=== PATIENT | male | born 1995 | race Caucasian/White ===

== ENCOUNTER 2016-09-25 15:18 | Emergency (ER) | payer SELFPAY ==
[2016-09-25 15:27] VITALS: BP 114/68
--- NOTE | 2016-09-25 15:50 | UC ---
UC General HPI - History of Current Complaint Chief Complaint: UCUpperExtremity Stated Complaint: PECTORAL INJURY Time Seen by Provider: 09/25/16 15:36 Hx Obtained From: Patient Onset/Duration: Gradual Onset - has had escalating R sided pectoral pain. works at [employer] nad lifts heavy food repeatidly. no known certain injury Timing: Constant Onset Severity: Mild Current Severity: Moderate Associated Signs & Symptoms: Negative: Chest Pain, Dizziness, Headache, Hemoptysis, SOB, Wheezing - Allergy/Home Medications Allergies/Adverse Reactions: Allergies Allergy/AdvReac Type Severity Reaction Status Date / Time No Known Allergies Allergy Verified 05/24/14 01:04 PMH/Surg Hx/FS Hx/Imm Hx Previously Healthy: Yes - Surgical History Surgical History: Yes Surgery Procedure, Year, and Place: tubes - Family History Known Family History: Positive: None - Social History Occupation: Employed Part-time - [employer] Lives: With Family Alcohol Use: Occasionally Substance Use Type: Marijuana Substance Use Comment - Amount & Last Used: 2-3 times a week Smoking Status (MU): Light Every Day Tobacco Smoker Type: Cigarettes Cessation Counseling: Patient Advised to Stop Review of Systems Constitutional: Negative Cardiovascular: Negative Gastrointestinal: Negative Musculoskeletal: Other: - pain R pectoral area, worse with R arm movement or very deep breath Neurological: Negative Psychological: Negative All Other Systems Reviewed And Are Negative: Yes Physical Exam Triage Information Reviewed: Yes Appearance: Well-Appearing, No Pain Distress, Well-Nourished Vital Signs: Initial Vital Signs Temp 99.2 F 09/25/16 15:21 Pulse 62 09/25/16 15:21 Resp 18 09/25/16 15:21 BP 114/68 09/25/16 15:21 Pulse Ox 97 09/25/16 15:21 Vital Signs Reviewed: Yes Respiratory Exam: Normal Respiratory: Positive: Lungs clear, Normal breath sounds Cardiovascular Exam: Normal Cardiovascular: Positive: RRR, No Murmur Musculoskeletal: Positive: Other: - palpable pain R anterior chest, intercostal area rib 4-5, small amt crepitus when arm abducted Course/Dx - Differential Dx - Multi-Symptom Provider Diagnoses: R pectoral strain. costrochondritis Discharge - Discharge Plan Condition: Stable Disposition: HOME Patient Education Materials: Muscle Strain (ED) Additional Instructions: apply heat to area of pain use over the counter ibuprofen 600-800mg every 6 hours with food for 3-5 days return if no improvement 5 days
== END 2016-09-25 16:04 | disposition home or self-care (01) ==
LOC: UCEAST 15:18
DX: Z72.0 Tobacco use (principal); S29.011A Strain of muscle and tendon of front wall of thorax, initial encounter; X50.3XXA Overexertion from repetitive movements, initial encounter; Y93.G1 Activity, food preparation and clean up; Y92.511 Restaurant or cafe as the place of occurrence of the external cause; Y99.0 Civilian activity done for income or pay; M94.0 Chondrocostal junction syndrome [Tietze]
CPT/HCPCS: 99211; G0463

== ENCOUNTER 2017-09-18 16:03 | Inpatient (IN) | payer OTHER ==
[2017-09-18 18:44] LABS: ABS Basophils 0 10^3/ul (0-0.2); ABS Eosinophils 0 10^3/ul (0-0.6); ABS Monocytes 0.8 10^3/ul (0-0.8); ABS Neutrophils 6.1 10^3/ul (1.5-7.7); ABS Nucleated RBC 0 10^3/ul; Eosinophil % 0.5 % (0-6); Hematocrit 44 % (42-52); Hemoglobin 14.9 g/dl (14.0-18.0); Lymphocyte % 12.2 % (25-47); Mean Corpuscular HGB Conc 34 g/dl (31-36); Mean Corpuscular Hemoglobin 30 pg (27-31); Mean Corpuscular Volume 88 fL (80-94); Mean Platelet Volume 8.8 um3 (7.4-10.4); Nucleated Red Blood Cells % 0; Platelet Count 237 10^3/ul (150-450); Red Blood Count 4.95 10^6/ul (4.0-5.4); Red Cell Distribution Width 13 % (10.5-15); White Blood Count 7.9 10^3/ul (3.5-10.8)
[2017-09-18 19:00] LABS: EGFR Non-African American 97.7 (>60)
[2017-09-18 19:43] LABS: Urine Appearance Clear; Urine Blood Negative (Negative); Urine Color Yellow; Urine Ketones Negative (Negative); Urine Protein Negative (Negative); Urine Specific Gravity 1.008 (1.010-1.030); Urine Urobilinogen Negative (Negative)
[2017-09-18] MEDS ORDERED: Nicotine Inhaler* 10 MG AMP INH ONE (21:47)
[2017-09-18] MEDS ORDERED: Mouth Piece, Nicotine* 1 EACH CARTRIDGE ONE (22:16)
[2017-09-18] MEDS: Mouth Piece, Nicotine* 1 EACH CARTRIDGE INH PRN (22:20)
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
[2017-09-19] MEDS ORDERED: Mouth Piece, Nicotine* 1 EACH CARTRIDGE INH ONE (01:00)
[2017-09-19] MEDS ORDERED: ALPRAZolam TAB* 0.5 MG PO ONE (01:09)
[2017-09-19] MEDS ORDERED: Nicotine Inhaler* 10 MG AMP ONE ×2 (01:27→10:34)
[2017-09-19] MEDS: Nicotine Inhaler* 10 MG AMP INH PRN ×4 (01:39→19:58)
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
[2017-09-19] MEDS ORDERED: Al Hydrox/Mg Hydrox/Simet LIQ* 30 ML UDC PO PRN (12:06)
[2017-09-19] MEDS ORDERED: Acetaminophen TAB* 325 MG PO PRN (12:06)
[2017-09-19] MEDS ORDERED: Nicotine Inhaler* 10 MG AMP INH PRN (12:06)
[2017-09-19] MEDS ORDERED: Haloperidol TAB* 5 MG PO PRN (12:07)
[2017-09-19] MEDS ORDERED: Mouth Piece, Nicotine* 1 EACH CARTRIDGE ONE (16:24)
[2017-09-19] MEDS: Mouth Piece, Nicotine* 1 EACH CARTRIDGE INH PRN (16:28)
[2017-09-19] MEDS: LORazepam TAB(*) 1 MG PO PRN (20:37)
[2017-09-20] MEDS: Nicotine Inhaler* 10 MG AMP INH PRN ×7 (06:30→21:02)
[2017-09-20] MEDS: Nicotine GUM* 2 MG PO PRN ×4 (08:38→21:02)
--- NOTE | 2017-09-20 11:29 | PN ---
MHU: Group Therapy Note - Service Type Service Type: [id number] Group Psychotherapy - Cognitive Behavioral Group Therapy ( CBT):Patient was attentive and participatory in CBT programming this morning, and remained in good behavioral control. Patient expressed positive insights regarding relevant treatment interventions and goals.
[2017-09-20] MEDS: Lithium Carbonate TAB* 300 MG PO SCH (16:54)
[2017-09-20] MEDS: LORazepam TAB(*) 1 MG PO PRN (21:02)
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
[2017-09-21] MEDS: Lithium Carbonate TAB* 300 MG PO SCH (09:22)
[2017-09-21] MEDS: Nicotine Inhaler* 10 MG AMP INH PRN ×5 (09:23→21:07)
[2017-09-21] MEDS: Nicotine GUM* 2 MG PO PRN ×3 (09:23→19:05)
--- NOTE | 2017-09-21 11:36 | PN ---
Subjective - Subjective Date of Service: 09/21/17 Service Type: 11314 Hosp care 15 min low complexity Subjective: Cam is doing well. Remains hypomanic and hyperkinetic as well as overtalkative. He is tolerating the lithium well thus far and has no complaints. He denies SI or HI and is looking forward to a meeting with his parents and providers tomorrow at 11:00. He is participating well in groups, socializing with peers and agreeable with outpatient follow up referrals being made. Objective - Appearance Appearance: Well Developed/Nourished Dysmorphic Features: No Hygiene: Normal Grooming: Well Kept - Behavior Psychomotor Activities: Abnormal-Increased Exhibits Abnormal Movement: No - Attitude and Relatedness Attitude and Relatedness: Cooperative Eye Contact: Good - Speech Quality: Unpressured Latencies: Short Quantity: Copious - Mood Patient's Decription of Mood: "Great" - Affect Observed Affect: Expansive Affect Consistent with: Euphoria - Thought Process Patient's Thought Process: Coherent, Tangential Thought Content: No Passive Wish, No Suicidal Planning, No Homicidal Ideation, No Paranoid Ideation - Sensorium Experiencing Hallucinations: No, Sensorium is Clear Type of Hallucinations: Visual: No, Auditory: No, Command: No - Level of Consciousness Level of Consciousness: Alert Orientation: Yes Intact, Yes Orientated to Time, Yes Orientated to Place, Yes Orientated to Person - Impulse Control Impulse Control: Tenuous - Insight and Judgement Insight and Judgement: Fair - Group Participation Particating in Group Activities: Yes - Medication Management Medication Management Adherence: Yes Assessment - Assessment Merits Inpatient Hospitalization: For Immediate Safety, For Stabilization Inpatient DSM-V Dx: F31.13 Clinical Impression: 22 y.o. single, bisexual white male, recent college drop-out with a history of depressive episodes and recreational polysubstance abuse arrives via family with symptoms of eli and suicidal ideations. Plan - Plan Treatment Plan: Name: CAM SARAVIA Birthdate: 1995 [id number] We have started a trial of lithium 300mg PO qday, which the patient is tolerating well. Family meeting tomorrow (09/22) with parents. Target discharge for Tuesday, September 23. Continued Medication Management: Start Medication Medications: Current Medications Acetaminophen (Tylenol Tab*) 650 mg PO Q4H PRN PRN Reason: for pain; or Temp >101 F Al Hydrox/Mg Hydrox/Simethicone (Maalox Plus*) 30 ml PO Q4H PRN PRN Reason: INDIGESTION Haloperidol (Haldol Tab*) 5 mg PO Q6H PRN PRN Reason: AGITATION [place] Carbonate ([place]co Carbonate Tab*) 300 mg PO DAILY DOROTHY Last Admin: 09/21/17 09:22 Dose: 300 mg Lorazepam (Ativan Tab(*)) 1 mg PO Q6H PRN PRN Reason: ANXIETY Last Admin: 09/20/17 21:02 Dose: 1 mg Nicotine (Nicotine Inhaler*) 10 mg INH Q2H PRN PRN Reason: CRAVING Last Admin: 09/21/17 09:23 Dose: 10 mg Nicotine (Nicotine Inhaler*) 10 mg INH Q2H PRN PRN Reason: CRAVING Nicotine Polacrilex (Nicotine Gum*) 2 mg PO Q2H PRN PRN Reason: CRAVING Last Admin: 09/21/17 09:23 Dose: 2 mg - Discharge Plan Discharge Plan: Inpatient Hospitalization
[2017-09-21] MEDS: LORazepam TAB(*) 1 MG PO PRN (20:54)
[2017-09-22] MEDS: Nicotine GUM* 2 MG PO PRN ×4 (07:35→20:12)
[2017-09-22] MEDS: Nicotine Inhaler* 10 MG AMP INH PRN ×5 (07:36→20:12)
[2017-09-22] MEDS: Lithium Carbonate TAB* 300 MG PO SCH (10:14)
--- NOTE | 2017-09-22 11:28 | PN ---
MHU: Group Therapy Note - Service Type Service Type: 36520 Group Psychotherapy - Cognitive Behavioral Group Therapy ( CBT):Patient was attentive and participatory in CBT programming this morning, and remained in good behavioral control. Patient expressed positive insights regarding relevant treatment interventions and goals.
--- NOTE | 2017-09-22 13:23 | PN ---
Subjective - Subjective Date of Service: 09/22/17 Service Type: 38419 Family Medical Psyc Subjective: Cam is seen for therapeutic family meeting with his parents, Mabel and Dave Saravia, unit SW Stacey Parmar and medical student Prudence. Cam remains overtalkative and demonstrates a tendency to blurt out answers to questions asked of his parents, however, he is respectful and redirectable. His folks perceive that he is rapidly coming back to his baseline. Psychoeducation is provided, specifically around the subjects of bipolar disorder and lithium therapy. The patient continues to tolerate this well. He remains invested in recreational use of cannabis and cannot be talked into opting for complete abstinence or substance abuse treatment. He does agree to discontinue all other forms of recreational substance misuse. He is similarly agreeable with outpatient mental health follow up in the form of both a counselor and medication prescriber. Both the patient and his parents are given the opportunity to answer questions and they express comfort with the discharge plan for tomorrow, September 23. Cam denies thoughts of SI or self-harm. Objective - Appearance Appearance: Well Developed/Nourished, Healthy Appearing Dysmorphic Features: No Hygiene: Normal Grooming: Well Kept - Behavior Psychomotor Activities: Normal Exhibits Abnormal Movement: No - Attitude and Relatedness Attitude and Relatedness: Cooperative Eye Contact: Good - Speech Quality: Unpressured Latencies: Short Quantity: Copious - Mood Patient's Decription of Mood: "Great" - Affect Observed Affect: Good Affect Consistent with: Euthymia - Thought Process Patient's Thought Process: Coherent Thought Content: No Passive Wish, No Suicidal Planning, No Homicidal Ideation, No Paranoid Ideation - Sensorium Experiencing Hallucinations: No, Sensorium is Clear Type of Hallucinations: Visual: No, Auditory: No, Command: No - Level of Consciousness Level of Consciousness: Alert Orientation: Yes Intact, Yes Orientated to Time, Yes Orientated to Place, Yes Orientated to Person - Impulse Control Impulse Control: Tenuous - Insight and Judgement Insight and Judgement: Fair - Group Participation Particating in Group Activities: Yes - Medication Management Medication Management Adherence: Yes Assessment - Assessment Merits Inpatient Hospitalization: Consolidate Improvements, Pending Safe DC Plan Inpatient DSM-V Dx: F31.13 Clinical Impression: 22 y.o. single, bisexual white male, recent college drop-out with a history of depressive episodes and recreational polysubstance abuse arrives via family with symptoms of eli and suicidal ideations. Plan - Plan Treatment Plan: Name: CAM SARAVIA Birthdate: 1995 [id number] The patient is improving on a trial of lithium 300mg PO qday, and tolerating this well. Family agreeable with discharge plan. Target discharge for tomorrow , Tuesday, September 23. Continued Medication Management: Start Medication Medications: Current Medications Acetaminophen (Tylenol Tab*) 650 mg PO Q4H PRN PRN Reason: for pain; or Temp >101 F Al Hydrox/Mg Hydrox/Simethicone (Maalox Plus*) 30 ml PO Q4H PRN PRN Reason: INDIGESTION Haloperidol (Haldol Tab*) 5 mg PO Q6H PRN PRN Reason: AGITATION [place] Carbonate ([place] Carbonate Tab*) 300 mg PO DAILY DOROTHY Last Admin: 09/22/17 10:14 Dose: 300 mg Lorazepam (Ativan Tab(*)) 1 mg PO Q6H PRN PRN Reason: ANXIETY Last Admin: 09/21/17 20:54 Dose: 1 mg Nicotine (Nicotine Inhaler*) 10 mg INH Q2H PRN PRN Reason: CRAVING Last Admin: 09/22/17 10:16 Dose: 10 mg Nicotine (Nicotine Inhaler*) 10 mg INH Q2H PRN PRN Reason: CRAVING Nicotine Polacrilex (Nicotine Gum*) 2 mg PO Q2H PRN PRN Reason: CRAVING Last Admin: 09/22/17 07:35 Dose: 2 mg - Discharge Plan Discharge Plan: Outpatient Follow Up Outpatient Program: Private Clinician(s)
[2017-09-22] MEDS: LORazepam TAB(*) 1 MG PO PRN (20:12)
[2017-09-23 07:37] VITALS: BP 122/76
[2017-09-23] MEDS: Nicotine Inhaler* 10 MG AMP INH PRN (08:30)
[2017-09-23] MEDS: Lithium Carbonate TAB* 300 MG PO SCH (08:31)
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
== END 2017-09-23 12:59 | disposition home or self-care (01) | DRG 753 ==
LOC: ED 16:03 → BSU 09-19 12:06
PROVIDERS: ADMIT Psychiatry & Neurology Psychiatry; ATTEND Psychiatry & Neurology Psychiatry
PROC: GZHZZZZ Group Psychotherapy (ICD-10-PCS; principal; 2017-09-20)
DX: F31.13 Bipolar disorder, current episode manic without psychotic features, severe (principal); R45.851 Suicidal ideations; F12.10 Cannabis abuse, uncomplicated; F16.10 Hallucinogen abuse, uncomplicated; F13.10 Sedative, hypnotic or anxiolytic abuse, uncomplicated; F17.210 Nicotine dependence, cigarettes, uncomplicated; Z72.89 Other problems related to lifestyle; Z81.8 Family history of other mental and behavioral disorders; Z91.410 Personal history of adult physical and sexual abuse
CPT/HCPCS: 36415; 80053; 80061; 80074; 80307; 80320; 80329; 81003; 83036; 84443; 85025; 86592; 86703; 87491; 87591; 90847; 90853; 99222; 99231; 99238; 99284; A9270-GY; G0480

== ENCOUNTER 2018-04-07 07:15 | Emergency (ER) | payer OTHER ==
[2018-04-07] MEDS ORDERED: NS 0.9% 1000 ML* 1,000 ML IV ONE (07:48)
[2018-04-07] MEDS ORDERED: Ondansetron INJ* 2 MG/ML VIAL IV ONE (07:48)
[2018-04-07] MEDS ORDERED: Pantoprazole IV* 40 MG IV ONE (07:48)
--- NOTE | 2018-04-07 07:52 | ED ---
Abdominal Pain/Male - HPI Summary HPI Summary: The patient is a 22 y/o M presenting to [facility] accompanied by mother with a chief complaint of severe diffuse abd pain starting four days ago, which subsided that night, and then returned this morning around 00:00. The pain is located throughout the abd, but is primarily located in the RUQ. He thought that the pain initially was due to a meal he had, but he is unsure if that was the cause since it returned. The burning pain is rated 10/10 in severity. 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 Nausea and vomiting started last night with the onset of pain, and food seems to worsen the pain. He denies changes in urination and diarrhea. He also reports EtOH intake four days ago and last night prior to pain. He takes lithium for bipolar disorder. He has hx of tympanostomy tubes; his mother also reports that the pt had repeated reflux as child, and stomach surgery was going to be performed, but he grew out of the issue so surgery was never done. - History of Current Complaint Chief Complaint: Anya Stated Complaint: ABD PAIN Time Seen by Provider: 04/07/18 07:25 Hx Obtained From: Patient Onset/Duration: Sudden Onset, Lasting Days - started four days ago, subsided, returned last night at 00:00, Still Present Timing: Constant - since onset last night, Lasting Days - started four days ago , subsided, returned last night at 00:00 Severity Initially: Moderate Severity Currently: Severe Pain Intensity: 10 Pain Scale Used: 0-10 Numeric Location: Diffuse, Discrete At: RUQ Radiates: No Character: Burning Aggravating Factor(s): Food Alleviating Factor(s): Vomiting Associated Signs And Symptoms: Positive: Nausea, Vomiting. Negative: Urinary Symptoms, Diarrhea - Allergies/Home Medications Allergies/Adverse Reactions: Allergies Allergy/AdvReac Type Severity Reaction Status Date / Time No Known Allergies Allergy Verified 04/07/18 07:20 PMH/Surg Hx/FS Hx/Imm Hx Endocrine/Hematology History: Denies: Hx Diabetes Sensory History: Reports: Hx Contacts or Glasses - glasses Denies: Hx Legally Blind, Hx Deafness, Hx Hearing Aid Opthamlomology History: Reports: Hx Contacts or Glasses - glasses Denies: Hx Legally Blind EENT History: Reports: Other Psychiatric History: Reports: Hx Anxiety, Hx Bipolar Disorder, Hx Substance Abuse Denies: Hx Eating Disorder - Surgical History Surgery Procedure, Year, and Place: tympanostomy tubes Infectious Disease History: No Infectious Disease History: Denies: Traveled Outside the [place] in Last 30 Days - Family History Known Family History: Positive: Other - Paternal grandfather alcoholism, Maternal grandfather Heroin abuse Negative: Cardiac Disease, Hypertension - Social History Alcohol Use: Weekly Substance Use Type: Reports: Marijuana, Other Substance Use Comment - Amount & Last Used: daily Smoking Status (MU): Light Every Day Tobacco Smoker Type: Cigarettes, eCigarettes Have You Smoked in the Last Year: Yes Review of Systems Positive: Abdominal Pain - diffuse but worst in the RUQ, Vomiting, Nausea. Negative: Diarrhea Positive: other - NEGATIVE: changes in urination All Other Systems Reviewed And Are Negative: Yes Physical Exam - Summary Physical Exam Summary: Appearance: The patient is well-nourished in no acute distress and in no acute pain. Skin: The skin is warm and dry and skin color reflects adequate perfusion. HEENT: The head is normocephalic and atraumatic. The pupils are equal and reactive. The conjunctivae are clear and without drainage. Nares are patent and without drainage. Mouth reveals moist mucous membranes and the throat is without erythema and exudate. The external ears are intact. The ear canals are patent and without drainage. The tympanic membranes are intact. Neck: The neck is supple with full range of motion and non-tender. There are no carotid bruits. There is no neck vein distension. Respiratory: Chest is non-tender. Lungs are clear to auscultation and breath sounds are symmetrical and equal. Cardiovascular: Heart is regular rate and rhythm. There is no murmur or rub auscultated. There is no peripheral edema and pulses are symmetrical and equal. Abdomen: The abdomen is soft and tender diffusely more in the right upper quadrant. There are normal bowel sounds heard in all four quadrants and there is no organomegaly palpated. Musculoskeletal: There is no back tenderness noted. Extremities are non-tender with full range of motion. There is good capillary refill. There is no peripheral edema or calf tenderness elicited. Neurological: Patient is alert and oriented to person, place and time. The patient has symmetrical motor strength in all four extremities. Cranial nerves are grossly intact. Deep tendon reflexes are symmetrical and equal in all four extremities. Psychiatric: The patient has an appropriate affect and does not exhibit any anxiety or depression. Triage Information Reviewed: Yes Vital Signs On Initial Exam: Initial Vitals Temp Pulse Resp BP Pulse Ox 98.1 F 56 20 126/98 98 04/07/18 07:18 04/07/18 07:18 04/07/18 07:18 04/07/18 07:18 04/07/18 07:18 Vital Signs Reviewed: Yes Diagnostics - Vital Signs Vital Signs Temp Pulse Resp BP Pulse Ox 04/07/18 07:18 98.1 F 56 20 126/98 98 - Laboratory Result Diagrams: 04/07/18 07:53 04/07/18 07:53 Lab Statement: Any lab studies that have been ordered have been reviewed, and results considered in the medical decision making process. - Ultrasound No standard instances Ultrasound Interpretation Completed By: Radiologist Summary of Ultrasound Findings: Gallbladder US: No acute sonographic pathology of the visualized portion of the abdomen. ED physician has reviewed this report. Re-Evaluation - Re-Evaluation First Eval Re-Evaluation Time: 10:30 Change: Improved Comment: I spoke with the patient about US results and discharge home. Abdominal Pain Fem Course/Dx - Course Course Of Treatment: Mr. Navarro presented with a complaint of epigastric pain that started about 4 AM and is accompanied by significant vomiting and no diarrhea. He was tender in the epigastrium and especially in the right upper quadrant. He was nontoxic in appearance and his vital signs are stable. Labs were unremarkable as was a gallbladder ultrasound and his symptoms improved with IV Protonix and Zofran with normal saline. I recommended that he follow- up with his PCP or return if his symptoms returned. - Diagnoses Provider Diagnoses: Epigastric pain Discharge - Sign-Out/Discharge Documenting (check all that apply): Patient Departure - Patient will be discharged home. - Discharge Plan Condition: Stable Disposition: HOME Patient Education Materials: Epigastric Pain (ED) Referrals: Susy Mendez MD [Primary Care Provider] - 3 Days Additional Instructions: Follow up with your primary care provider in 2-3 days. Return to the emergency department for any new or worsening symptoms. - Billing Disposition and Condition Condition: STABLE Disposition: Home - Attestation Statements Document Initiated by Scribe: Yes Documenting Scribe: Isabel Muñoz Provider For Whom Scribe is Documenting (Include Credential): Dr. Carlos Macario MD Scribe Attestation: I, Isabel Muñoz, scribed for Dr. Carlos Macario MD on 04/07/18 at 1813. Scribe Documentation Reviewed: Yes Provider Attestation: The documentation as recorded by the scribe, Isabel Muñoz accurately reflects the service I personally performed and the decisions made by me, Dr. Carlos Macario MD Status of Scribe Document: Viewed
[2018-04-07 08:12] LABS: ABS Basophils 0.1 10^3/ul (0-0.2); ABS Eosinophils 0 10^3/ul (0-0.6); ABS Lymphocytes 0.8 10^3/ul (1.0-4.8); ABS Monocytes 1.1 10^3/ul (0-0.8); ABS Neutrophils 10.8 10^3/ul (1.5-7.7); ABS Nucleated RBC 0 10^3/ul; Eosinophil % 0 %; Hematocrit 48 % (42-52); Hemoglobin 16.3 g/dl (14.0-18.0); Lymphocyte % 6.2 %; Mean Corpuscular HGB Conc 34 g/dl (31-36); Mean Corpuscular Hemoglobin 29 pg (27-31); Mean Corpuscular Volume 86 fL (80-94); Nucleated Red Blood Cells % 0; Platelet Count 220 10^3/ul (150-450); Red Blood Count 5.59 10^6/ul (4.00-5.40); Red Cell Distribution Width 14 % (10.5-15); White Blood Count 12.8 10^3/ul (3.5-10.8)
[2018-04-07 08:26] LABS: ALT 12 U/L (7-52); AST 22 U/L (13-39); Albumin 4.8 g/dL (3.2-5.2); Albumin/Globulin Ratio 1.7 (1-3); Alkaline Phosphatase 92 U/L (34-104); Anion Gap 14 mmol/L (2-11); Blood Urea Nitrogen 9 mg/dL (6-24); CO2 Carbon Dioxide 23 mmol/L (22-32); Calcium 9.7 mg/dL (8.6-10.3); Chloride 100 mmol/L (101-111); EGFR Non-African American 118.6 (>60); Globulin 2.8 g/dL (2-4); Glucose 129 mg/dL (70-100); Sodium 137 mmol/L (135-145); Total Protein 7.6 g/dL (6.4-8.9)
[2018-04-07 09:30] LABS: Lithium < 0.10 mmol/L (0.6-1.2)
[2018-04-07 09:58] LABS: Urine Appearance Clear; Urine Bacteria Absent (Absent); Urine Bilirubin Negative (Negative); Urine Blood 1+ (Negative); Urine Color Yellow; Urine Glucose Negative (Negative); Urine Ketones 1+ (Negative); Urine Nitrite Negative (Negative); Urine Protein 2+(100 mg/dL) (Negative); Urine Red Blood Cell 2+(6-10/hpf) (Absent); Urine Specific Gravity 1.025 (1.010-1.030); Urine Urobilinogen Negative (Negative); Urine White Blood Cell Trace(0-5/hpf) (Absent)
[2018-04-07 10:42] VITALS: BP 109/55
== END 2018-04-07 10:47 | disposition home or self-care (01) ==
LOC: ED 07:15
DX: R10.13 Epigastric pain (principal); R11.2 Nausea with vomiting, unspecified; F17.210 Nicotine dependence, cigarettes, uncomplicated
CPT/HCPCS: 36415; 76705; 80053; 80178; 81003; 81015; 83605; 83690; 85025; 86140; 87086; 96374; 96375; 99283; J2405

== ENCOUNTER 2018-11-01 00:45 | Emergency (ER) | payer OTHER ==
[2018-11-01] MEDS ORDERED: Metoclopramide IV* 5 MG/ML 2 ML VIAL IV SLOW PU ONE (01:02)
[2018-11-01] MEDS ORDERED: NS 0.9% 1000 ML** 1,000 ML IV ONE (01:02)
[2018-11-01 01:14] LABS: ABS Basophils 0.1 10^3/ul (0-0.2); ABS Lymphocytes 0.8 10^3/ul (1.0-4.8); ABS Monocytes 1.4 10^3/ul (0-0.8); ABS Neutrophils 14.7 10^3/ul (1.5-7.7); Eosinophil % 0.2 %; Hematocrit 45 % (42-52); Hemoglobin 15.6 g/dL (14.0-18.0); Mean Corpuscular HGB Conc 35 g/dL (31-36); Mean Corpuscular Hemoglobin 30 pg (27-31); Mean Corpuscular Volume 85 fL (80-94); Mean Platelet Volume 8.4 fL (7.4-10.4); Platelet Count 255 10^3/uL (150-450); Red Cell Distribution Width 13 % (10-15); White Blood Count 17.1 10^3/uL (3.5-10.8)
[2018-11-01] MEDS ORDERED: Ketorolac INJ* 30 MG/ML 1 ML VIAL IV PUSH ONE (01:25)
[2018-11-01 01:36] LABS: Albumin 3.8 g/dL (3.2-5.2); Albumin/Globulin Ratio 1.1 (1-3); BUN/Creatinine Ratio 11.1 (8-20); C Reactive Protein 109.82 mg/L (<8.01); Calcium 9.2 mg/dL (8.6-10.3); EGFR African American 144.2 (>60); EGFR Non-African American 119.2 (>60); Globulin 3.4 g/dL (2-4); Magnesium 2.1 mg/dL (1.9-2.7); Potassium 3.4 mmol/L (3.5-5.0); Total Bilirubin 0.5 mg/dL (0.2-1.0); Total Protein 7.2 g/dL (6.4-8.9)
[2018-11-01 01:56] LABS: Lithium 0.4 mmol/L (0.6-1.2)
[2018-11-01] MEDS ORDERED: Iohexol 300* (CONTRAST) 10 ML SDV IV ONE (03:26)
--- NOTE | 2018-11-01 04:22 | ED ---
GI/ HPI - HPI Summary HPI Summary: The pt is a 23 yr old male presenting to [facility] c/o abd pain, nausea, vomiting, and constipation beginning 2 days ago. He states that he had a bowel movement today and that it was the first one in two days. He reports vomiting 3-4 times today and rates his pain severity an 8/10. He was diagnosed with a UTI and prescribed bactrim that he is currently taking. The pt also takes lithium at home. He denies any fever, dysuria, or Hx of GI surgical history. - History of Current Complaint Chief Complaint: EDNauseaVomitDiarrh Time Seen by Provider: 11/01/18 00:52 Stated Complaint: STOMACH PAIN PER PT Hx Obtained From: Patient Onset/Duration: Started Days Ago, Still Present Timing: Constant Severity: Severe Current Severity: Severe Pain Intensity: 8 Associated Signs and Symptoms: Positive: Nausea, Vomiting, Constipation, Abdominal Pain - Additional Pertinent History Primary Care Physician: ROWAN - Allergy/Home Medications Allergies/Adverse Reactions: Allergies Allergy/AdvReac Type Severity Reaction Status Date / Time No Known Allergies Allergy Verified 11/01/18 00:49 PMH/Surg Hx/FS Hx/Imm Hx Endocrine/Hematology History: Denies: Hx Diabetes Sensory History: Reports: Hx Contacts or Glasses - glasses Denies: Hx Legally Blind, Hx Deafness, Hx Hearing Aid Opthamlomology History: Reports: Hx Contacts or Glasses - glasses Denies: Hx Legally Blind Psychiatric History: Reports: Hx Anxiety, Hx Bipolar Disorder, Hx Substance Abuse Denies: Hx Eating Disorder - Surgical History Surgery Procedure, Year, and Place: tympanostomy tubes Infectious Disease History: No Infectious Disease History: Denies: Traveled Outside the [place] in Last 30 Days - Family History Known Family History: Positive: Other - Paternal grandfather alcoholism, Maternal grandfather Heroin abuse Negative: Cardiac Disease, Hypertension - Social History Alcohol Use: Weekly Substance Use Type: Reports: Marijuana, Other Substance Use Comment - Amount & Last Used: daily Smoking Status (MU): Light Every Day Tobacco Smoker Type: Cigarettes, eCigarettes Have You Smoked in the Last Year: Yes Review of Systems Negative: Fever Positive: Abdominal Pain, Vomiting, Other - Positive - Constipation Negative: dysuria All Other Systems Reviewed And Are Negative: Yes Physical Exam - Summary Physical Exam Summary: VITAL SIGNS: Reviewed. GENERAL: Patient is a well-developed and nourished male who is lying comfortable in the stretcher. Patient is not in any acute respiratory distress. HEAD AND FACE: No signs of trauma. No ecchymosis, hematomas or skull depressions. No sinus tenderness. EYES: PERRLA, EOMI x 2, No injected conjunctiva, no nystagmus. EARS: Hearing grossly intact. Ear canals and tympanic membranes are within normal limits. MOUTH: Oropharynx within normal limits. NECK: Supple, trachea is midline, no adenopathy, no JVD, no carotid bruit, no c- spine tenderness, neck with full ROM CHEST: Symmetric, no tenderness at palpation LUNGS: Clear to auscultation bilaterally. No wheezing or crackles. CVS: Regular rate and rhythm, S1 and S2 present, no murmurs or gallops appreciated. ABDOMEN: Soft, mild diffuse tenderness. No signs of distention. No rebound no guarding, and no masses palpated. Hypoactive bowel sounds. EXTREMITIES: FROM in all major joints, no edema, no cyanosis or clubbing. NEURO: Alert and oriented x 3. No acute neurological deficits. Speech is normal and follows commands. SKIN: Dry and warm Triage Information Reviewed: Yes Vital Signs On Initial Exam: Initial Vitals Temp Pulse Resp BP Pulse Ox 98.2 F 107 16 117/84 95 11/01/18 00:46 11/01/18 00:46 11/01/18 00:46 11/01/18 00:46 11/01/18 00:46 Vital Signs Reviewed: Yes Diagnostics - Vital Signs Vital Signs Temp Pulse Resp BP Pulse Ox 11/01/18 02:01 79 102/57 97 11/01/18 02:00 81 97 11/01/18 01:31 84 108/64 100 11/01/18 01:03 87 98 11/01/18 01:01 85 138/80 98 11/01/18 00:46 98.2 F 107 16 117/84 95 - Laboratory Lab Results: Lab Results 11/01/18 11/01/18 Range/Units 01:09 01:09 WBC 17.1 H (3.5-10.8) 10^3/uL RBC 5.30 (4.18-5.48) 10^6 /uL Hgb 15.6 (14.0-18.0) g/dL Hct 45 (42-52) % MCV 85 (80-94) fL MCH 30 (27-31) pg MCHC 35 (31-36) g/dL RDW 13 (10-15) % Plt Count 255 (150-450) 10^3/uL MPV 8.4 (7.4-10.4) fL Neut % (Auto) 86.3 % Lymph % (Auto) 5.0 % [place] % (Auto) 8.2 % Eos % (Auto) 0.2 % Baso % (Auto) 0.3 % Absolute Neuts (auto) 14.7 H (1.5-7.7) 10^3/ul Absolute Lymphs (auto) 0.8 L (1.0-4.8) 10^3/ul Absolute Monos (auto) 1.4 H (0-0.8) 10^3/ul Absolute Eos (auto) 0.0 (0-0.6) 10^3/ul Absolute Basos (auto) 0.1 (0-0.2) 10^3/ul Absolute Nucleated RBC 0.0 10^3/ul Nucleated RBC % 0.0 Sodium 132 L (135-145) mmol/L Potassium 3.4 L (3.5-5.0) mmol/L Chloride 96 L (101-111) mmol/L Carbon Dioxide 28 (22-32) mmol/L Anion Gap 8 (2-11) mmol/L BUN 9 (6-24) mg/dL Creatinine 0.81 (0.67-1.17) mg/dL Est GFR ( Amer) 144.2 (>60) Est GFR (Non-Af Amer) 119.2 (>60) BUN/Creatinine Ratio 11.1 (8-20) Glucose 144 H (70-100) mg/dL Calcium 9.2 (8.6-10.3) mg/dL Magnesium 2.1 (1.9-2.7) mg/dL Total Bilirubin 0.50 (0.2-1.0) mg/dL AST 10 L (13-39) U/L ALT 8 (7-52) U/L Alkaline Phosphatase 65 (34-104) U/L C-Reactive Protein 109.82 H (<8.01) mg/L Total Protein 7.2 (6.4-8.9) g/dL Albumin 3.8 (3.2-5.2) g/dL Globulin 3.4 (2-4) g/dL Albumin/Globulin Ratio 1.1 (1-3) Amylase 31 (29-103) U/L Lipase 14 (11.0-82.0) U/L [place] 0.40 L (0.6-1.2) mmol/L Result Diagrams: 11/01/18 01:09 11/01/18 01:09 Lab Statement: Any lab studies that have been ordered have been reviewed, and results considered in the medical decision making process. - CT CT A/P CT Interpretation Completed By: Radiologist Summary of CT Findings: Impressions: 1. Marked thickening of the terminal ileum. The possibility of Crohn's disease. would be consideration. 2. Possible punctate nonobstructing right renal calculus. 3. 2 small nodules in the left lower lobe, possibly granuloma. ED Physician has reviewed this imaging report. GIGU Course/Dx - Course Course Of Treatment: The pt is a 23 yr old male presenting to [facility] c/o abd pain , nausea, vomiting, and constipation beginning 2 days ago. He states that he had a bowel movement today and that it was the first one in two days. He reports vomiting 3-4 times today and rates his pain severity an 8/10. He was diagnosed with a UTI and prescribed bactrim that he is currently taking. He denies any fever or Hx of GI surgical history. An CT A/P reveals: 1. Marked thickening of the terminal ileum. The possibility of Crohn's disease. would be consideration. 2. Possible punctate nonobstructing right renal calculus. 3. 2 small nodules in the left lower lobe, possibly granuloma. Test results with no significant abnormalities except for WBC @ 17.1, Absolute neuts @ 14.7, Absolute lymphs @ 0.8, Absolute monos @ 1.4, Sodium @ 132, Potassium @ 3.4, Chloride @ 96, Glucose @ 144, AST @ 10, CRP @ 109.82, Urine ketones trace, and lithium @ 0.40. In the ED course the pt was given 15 mg Toradol IV, 10 mg Reglan IV, and 1000 mls fluids @ 1000 mls/hr IV. Dr. Xavier was consulted @ 2443 and determined that the pt should not be diagnosed with Chrohns disease. The pt was discharged home with PCP follow up within 3 days. - Diagnoses Provider Diagnoses: Ileitis Discharge - Sign-Out/Discharge Documenting (check all that apply): Patient Departure - discharge Patient Received Moderate/Deep Sedation with Procedure: No - Discharge Plan Condition: Stable Disposition: HOME Prescriptions: Ibuprofen TAB* [Motrin TAB* 600 MG] 600 mg PO Q6H PRN #30 tab PRN Reason: Pain Levofloxacin TAB* [Levaquin TAB*] 500 mg PO DAILY #7 tab metroNIDAZOLE [Flagyl 500 MG TAB] 500 mg PO TID #20 tab Patient Education Materials: Constipation (ED) Referrals: Marc Xavier MD [Medical Doctor] - 11/03/18 Susy Mendez MD [Primary Care Provider] - 3 Days Additional Instructions: PLEASE RETURN TO THE ED IMMEDIATELY FOR WORSENING OR CONCERNING SYMPTOMS. FOLLOW UP WITH PRIMARY CARE PHYSICIAN WITHIN 3 DAYS. - Billing Disposition and Condition Condition: STABLE Disposition: Home - Attestation Statements Scribe Documentation Reviewed: Yes
[2018-11-01 04:37] LABS: Urine Appearance Clear; Urine Bilirubin Negative (Negative); Urine Blood Negative (Negative); Urine Color Straw; Urine Glucose Negative (Negative); Urine Ketones Trace (Negative); Urine Nitrite Negative (Negative); Urine Protein Negative (Negative); Urine Specific Gravity 1.016 (1.010-1.030); Urine Urobilinogen Negative (Negative)
[2018-11-01] MEDS ORDERED: metroNIDAZOLE TAB* 250 MG PO ONE (05:55)
[2018-11-01] MEDS ORDERED: Levofloxacin TAB* 500 MG PO ONE (05:55)
[2018-11-01 06:06] VITALS: BP 120/76
== END 2018-11-01 06:08 | disposition home or self-care (01) ==
LOC: ED 00:45
DX: K52.9 Noninfective gastroenteritis and colitis, unspecified (principal); F17.210 Nicotine dependence, cigarettes, uncomplicated; R91.8 Other nonspecific abnormal finding of lung field
CPT/HCPCS: 36415; 74177; 80053; 80178; 81003; 82150; 83690; 83735; 85025; 86140; 96361; 96374; 96375; 99283; A9270-GY; J1885; J2765